=== PATIENT | female | born 1995 | race Caucasian/White ===

== ENCOUNTER → 2018-06-13 10:23 | Outpatient (REF) | payer OTHER, SELFPAY ==
[2018-06-13 13:20] LABS: Abs Immature Grans 0.01 k/cumm (0.0-0.09); Absolute Basophil Count 0.01 k/cumm (0.0-0.2); Absolute Lymphocyte Count 1.64 k/cumm (1.2-3.4); Absolute Monocyte Count 0.37 k/cumm (0.11-0.7); Absolute Neutrophil Count 3.95 k/cumm (1.2-6.7); Basophils % 0.2; Eosinophils % 1.6; HCT 40.7 % (36.0-46.0); HGB 13.9 g/dL (12.0-15.5); Immature Grans % 0.2; Mean Corp. HGB Concentration 34.2 g/dL (32.0-36.0); Mean Corpuscular Hemoglobin 29.6 pg (27.0-33.0); Mean Corpuscular Volume 86.6 fL (80-95); Monocytes % 6.1; Neutrophils % 64.9; Platelet Count 227 x1000/uL (130-400); RBC Distribution Width 12.1 % (11.7-14.6); White Blood Cell Count 6.08 k/cumm (4.4-10.8)
[2018-06-13 13:55] LABS: ALT 22 U/L (12-78); AST 15 U/L (15-37); Albumin 4.4 g/dL (3.4-5.0); Alkaline Phosphatase 56 U/L (46-116); Anion Gap 8.5 mmol/L (3-11); BUN 8 mg/dL (7-18); Bilirubin, Total 0.5 mg/dL (0.2-1.0); CO2 27.5 mmol/L (21.0-32.0); Calcium 9.5 mg/dL (8.5-10.1); Chloride 102 mmol/L (98-107); Glucose 80 mg/dL (70-100); Potassium 4.1 mmol/L (3.5-5.1); Sodium 138 mmol/L (136-145); Total Protein 8.2 g/dL (6.4-8.2)
== END ==
LOC: NCHCN 10:23
PROVIDERS: Visit Provider Nurse Practitioner Family
DX: R10.11 Right upper quadrant pain (principal)
CPT/HCPCS: 80053; 85025

== ENCOUNTER → 2018-06-21 00:20 | Outpatient (CLI) | payer OTHER, SELFPAY ==
--- NOTE | 2018-06-21 08:17 | DI.REPORT_ITS ---
SYMPTOM/DIAGNOSIS: RT UPPER QUAD PAIN R10.11 ABDOMEN ULTRASOUND: The liver is normal in size and echogenicity. No focal liver lesions or biliary dilatation is seen. A single 10 mm stone is noted in the gallbladder which was mobile. There is no gallbladder wall thickening. No sonographic Pabon's sign was elicited while scanning. There is no abnormal gallbladder distension. The spleen, kidneys, pancreas and aorta appear normal. There is no ascites. IMPRESSION: 10 mm mobile gallstone. No evidence of cholecystitis or biliary dilatation.
== END ==
PROVIDERS: Visit Provider Nurse Practitioner Family
DX: R10.11 Right upper quadrant pain (principal); K80.70 Calculus of gallbladder and bile duct without cholecystitis without obstruction
CPT/HCPCS: 76700

== ENCOUNTER 2018-08-15 09:22 | Outpatient (REF) | payer OTHER, SELFPAY ==
[2018-08-15 12:41] LABS: Abs Immature Grans 0.02 k/cumm (0.0-0.09); Absolute Basophil Count 0.01 k/cumm (0.0-0.2); Absolute Eosinophil Count 0.07 k/cumm (0.0-0.7); Absolute Lymphocyte Count 2.14 k/cumm (1.2-3.4); Absolute Monocyte Count 0.74 k/cumm (0.11-0.7); Absolute Neutrophil Count 7.25 k/cumm (1.2-6.7); Basophils % 0.1; Eosinophils % 0.7; HCT 41.8 % (36.0-46.0); HGB 14.5 g/dL (12.0-15.5); Immature Grans % 0.2; Lymphocytes % 20.9; Mean Corp. HGB Concentration 34.7 g/dL (32.0-36.0); Mean Corpuscular Hemoglobin 29.8 pg (27.0-33.0); Mean Platelet Volume 10.8 fL (8.0-11.0); Monocytes % 7.2; Neutrophils % 70.9; Platelet Count 245 x1000/uL (130-400); RBC 4.86 m/cumm (4.00-5.20); RBC Distribution Width 11.8 % (11.7-14.6); White Blood Cell Count 10.23 k/cumm (4.4-10.8)
[2018-08-15 12:52] LABS: ALT 17 U/L (12-78); AST 12 U/L (15-37); Albumin 4.2 g/dL (3.4-5.0); Alkaline Phosphatase 47 U/L (46-116); Anion Gap 9.1 mmol/L (3-11); BUN 9 mg/dL (7-18); Bilirubin, Total 0.4 mg/dL (0.2-1.0); CO2 26.9 mmol/L (21.0-32.0); CREATININE 0.89 mg/dL (0.55-1.02); Calcium 9.1 mg/dL (8.5-10.1); Chloride 103 mmol/L (98-107); Glucose 89 mg/dL (70-100); Potassium 3.9 mmol/L (3.5-5.1); Sodium 139 mmol/L (136-145); Total Protein 7.6 g/dL (6.4-8.2)
== END 2018-08-15 09:42 ==
LOC: NCHCN 09:22
PROVIDERS: Visit Provider Nurse Practitioner Family
DX: K80.20 Calculus of gallbladder without cholecystitis without obstruction (principal); R10.11 Right upper quadrant pain
CPT/HCPCS: 80053; 85025

== ENCOUNTER 2019-06-23 15:46 | Outpatient (REF) | payer OTHER, SELFPAY ==
--- NOTE | 2019-06-23 14:50 | PAPFT_PTH ---
PATIENT: Nancy Ybarra [facility] U[facility][id number] AGE/SX: 24/F ROOM: RE06/23/[address]: Litzy Marsh : 1995 BED: DIS: 06/23/2019 SPEC #: [id number] RECD: 06/26/19 12:39 STATUS: YAMIL REQ #: [id number] JOHNNY: 06/23/19 14:[address]: Litzy Marsh DEPT: [facility] Cytology RECD BY: Tiny Savage Tissues: 1 - CX/ENDOCX FOR PAP SMEARS Procedures: PAP THIN PREP/[facility] Screening Comments: [id number]
== END 2019-06-23 16:06 ==
LOC: NCHCN 15:46
PROVIDERS: PCP Nurse Practitioner Family; Visit Provider Nurse Practitioner Family
DX: Z00.00 Encounter for general adult medical examination without abnormal findings (principal); Z12.4 Encounter for screening for malignant neoplasm of cervix; Z01.419 Encounter for gynecological examination (general) (routine) without abnormal findings
CPT/HCPCS: 88142

== ENCOUNTER 2020-07-11 01:27 | Outpatient (CLI) | payer BC, SELFPAY ==
--- NOTE | 2020-07-11 10:43 | DI.US_ITS ---
EXAM: US BREAST RT COMPLETE CLINICAL HISTORY: BREAST LUMP RT, N63.0, MATERNAL FAM HX BREAST CA TECHNIQUE: Ultrasound right breast performed using standard protocol. COMPARISON: US RIGHT BREAST ULTRASOUND from 08/07/2013 FINDINGS: All 4 quadrants of the right breast were evaluated sonographically. Three radially oriented solid hy poechoic avascular masses are seen within the right breast. 2 were seen in the upper inner quadrant of the right breast. The largest measures 0.8 x 0.4 x 0.8 cm. These are located at the 2 o'clock po sition 3 cm from the nipple. At the 9 o'clock position of the right breast 3 cm from the nipple ther e is a 1.1 x 0.5 x 1.0 cm nodule. Shadowing echogenic foci are seen inferior to the nipple which may represent biopsy clips. No definite suspicious nodules are seen sonographically. IMPRESSION: Three hypoechoic radially oriented solid avascular masses in the right breast. No definite evidence for malignancy at this time. Findings were discussed with the patient on the date of the examination BI-RADS Category 3 - 6 month - Probably Benign Finding: Recommend follow-up mammography in 6 months DATA REPOSITORY:
== END 2020-07-11 01:47 ==
PROVIDERS: PCP Nurse Practitioner Family; Visit Provider Nurse Practitioner Family
DX: N63.12 Unspecified lump in the right breast, upper inner quadrant (principal)
CPT/HCPCS: 76642

== ENCOUNTER 2021-01-06 02:30 | Outpatient (CLI) | payer BC, SELFPAY ==
--- NOTE | 2021-01-06 | DI.US_ITS ---
EXAM: US BREAST RT COMPLETE CLINICAL HISTORY: FAMILY H/O BREAST CA,Z80.3,RT BREAST LUMP, N63.0,6 MONTH FOLLOWUP, F/U ABNL TECHNIQUE: Ultrasound right breast performed using standard protocol. COMPARISON: US US BREAST RT COMPLETE from 07/11/2020 FINDINGS: All 4 quadrants of the right breast were evaluated sonographically. There are 2 hypoechoic well-circ umscribed nodule seen in the right breast. The smaller lies at 2 o'clock and is located 3 cm from th e nipple. It measures 0.8 x 0.4 x 1.0 cm. It is avascular. No posterior acoustic enhancement or sh adowing is seen. The larger measures 1.1 x 0.7 x 1.1 cm. There is an internal calcification. No in ternal blood flow is seen. It is located at the 9 o'clock position 3 cm from the nipple. Biopsy cli ps are seen in the lower outer quadrant of the right breast. IMPRESSION: 1. No definite evidence for malignancy. 2. A six-month follow-up right breast ultrasound is recommended for re-evaluation. 3. Findings were discussed with the patient on the date of the examination. BI-RADS Category 3 - 6 month - Probably Benign Finding: Recommend follow-up ultrasound in 6 months DATA REPOSITORY:
== END 2021-01-06 02:50 ==
PROVIDERS: PCP Nurse Practitioner Family; Visit Provider Nurse Practitioner Family
DX: N63.12 Unspecified lump in the right breast, upper inner quadrant (principal); N63.15 Unspecified lump in the right breast, overlapping quadrants; Z80.3 Family history of malignant neoplasm of breast
CPT/HCPCS: 76642

== ENCOUNTER 2021-01-29 16:08 | Outpatient (REF) | payer BC, SELFPAY ==
[2021-01-31 12:32] LABS: COVID-19 RT-PCR UVMMC Result Negative (Negative)
== END 2021-01-29 16:09 | disposition home or self-care (01) ==
LOC: NCHCN 16:08
PROVIDERS: PCP Nurse Practitioner Family; Visit Provider Nurse Practitioner Family
DX: Z20.822 Contact with and (suspected) exposure to COVID-19 (principal)
CPT/HCPCS: U0003

== ENCOUNTER 2021-02-03 16:53 | Outpatient (REF) | payer BC, SELFPAY ==
[2021-02-04 01:02] LABS: COVID-19 RT-PCR UVMMC Result Negative (Negative)
== END 2021-02-03 16:54 | disposition home or self-care (01) ==
LOC: NCHCN 16:53
PROVIDERS: PCP Nurse Practitioner Family; Visit Provider Nurse Practitioner Family
DX: Z20.822 Contact with and (suspected) exposure to COVID-19 (principal)
CPT/HCPCS: U0003

== ENCOUNTER 2021-07-28 15:19 | Outpatient (REF) | payer OTHER, SELFPAY ==
[2021-07-29 16:39] LABS: COVID-19 RT-PCR UVMMC Result Negative (Negative)
== END 2021-07-28 15:20 | disposition home or self-care (01) ==
LOC: NCHCN 15:19
PROVIDERS: PCP Nurse Practitioner Family; Referring Provider Nurse Practitioner Family; Visit Provider Nurse Practitioner Family
DX: Z20.822 Contact with and (suspected) exposure to COVID-19 (principal)
CPT/HCPCS: U0003

== ENCOUNTER 2023-04-22 14:42 | Outpatient (REF) | payer OTHER, SELFPAY ==
--- NOTE | 2023-04-22 12:00 | PAPFT_PTH ---
PATIENT: Nancy Ybarra LOC: [facility] U#:[id number] AGE/SX: 27/F ROOM: RE04/22/[address]: Nanci Arevalo : 1995 BED: DIS: 04/22/2023 SPEC #: [id number] RECD: 04/22/23 17:49 STATUS: YAMIL REAna Cristina #: [id number] JOHNNY: 04/22/23 12:[address]: Nanci Arevalo DEPT: [facility] Cytology RECD BY: Davida Amador Tissues: 1 - CX/ENDOCX FOR PAP SMEARS Procedures: PAP THIN PREP/[facility] Screening Comments: [id number] (CHLAMYDIA/GC)
[2023-04-23 14:15] LABS: Chlamydia Result Negative (Negative); GC Result Negative (Negative)
== END 2023-04-22 14:43 | disposition home or self-care (01) ==
LOC: NCHCN 14:42
PROVIDERS: PCP Nurse Practitioner Family; Visit Provider Nurse Practitioner Family
DX: Z11.3 Encounter for screening for infections with a predominantly sexual mode of transmission (principal); Z00.00 Encounter for general adult medical examination without abnormal findings; Z12.4 Encounter for screening for malignant neoplasm of cervix
CPT/HCPCS: 87491; 87591; 88142